=== PATIENT | female | born 1990 | race African-American/Black ===

== ENCOUNTER 2016-11-08 07:54 | Emergency (ER) | payer OTHER, SELFPAY ==
[~2016-11-08] VITALS: Ht 165.1 cm; Wt 68.0 kg
[~2016-11-08 07:54] MED LIST: ADULT GLYCERIN1 EACH RECTAL; MIRALAX17 G2 ORAL
[2016-11-08] MEDS ORDERED: Dicyclomine HCl 10mg/5ml oral soln ORAL ONE (08:45)
[2016-11-08] MEDS ORDERED: Mylanta II UD 30ml ORAL ONE (08:45)
[2016-11-08 08:59] LABS: APPEARANCE,URINE SLIGHTLY CLOUDY; KETONES,URINE 1+ (NEGATIVE); LEUKOCYTE ESTERASE ,URINE 1+ (NEGATIVE); NITRITE,URINE NEGATIVE (NEGATIVE); PH,URINE 6 (4.5-8.0); PROTEIN,URINE 1+ (NEGATIVE); UROBILINOGEN,URINE NORMAL MG/DL (0.0-1.0)
[2016-11-08 09:00] LABS: BASOPHILS % (AUTO) 0.8 % (0.0-2.0); EOSINOPHILS % (AUTO) 1.6 % (0.0-3.0); LYMPHOCYTES % (AUTO) 27.8 % (20.0-45.0); MEAN CORPUSCULAR HEMOGLOBIN 28.5 PG (27.0-31.0); MEAN CORPUSCULAR HGB CONC 32.6 G/DL (32.0-36.0); MEAN CORPUSCULAR VOLUME 87 FL (80-99); MEAN PLATELET VOLUME 9.1 FL (6.5-10.1); MONOCYTES % (AUTO) 7.6 % (1.0-10.0); NEUTROPHILS % (AUTO) 62.2 % (45.0-75.0); PLATELET COUNT 269 K/UL (150-450); RED BLOOD COUNT 4.49 M/UL (4.20-5.40); RED CELL DISTRIBUTION WIDTH 11.8 % (11.6-14.8)
[2016-11-08 09:07] LABS: BACTERIA,URINE MODERATE /HPF; MUCUS,URINE FEW /LPF (NONE/OCC); SQUAMOUS EPITHELIAL CELL,UR MODERATE /LPF (NONE/OCC)
[2016-11-08 09:10] VITALS: BP 121/77
[2016-11-08 09:29] LABS: ALANINE AMINOTRANSFERASE 7 U/L (3-33); ALBUMIN/GLOBULIN RATIO 1.3 (1.0-2.7); ANION GAP 11 (5-15); ASPARTATE AMINO TRANSFERASE 11 U/L (5-40); CALCIUM 9.3 mg/dL (8.6-10.2); CARBON DIOXIDE 24 mEQ/L (20-30); CHLORIDE 107 mEQ/L (98-107); CREATININE 0.8 mg/dL (0.5-0.9); GLOMERULAR FILTRATION RATE > 60 mL/min (>60); HEMOLYSIS 0; LIPASE 39 U/L (< 60); POTASSIUM 3.9 mEQ/L (3.4-4.9); SODIUM 142 mEQ/L (135-145); TOTAL PROTEIN 6.9 g/dL (6.6-8.7)
[2016-11-08] MEDS ORDERED: PEPCID AC20 M2 PO (09:51)
[2016-11-08 09:56] VITALS: BP 96/50
[2016-11-08 09:57] VITALS: BP 96/50
--- NOTE | 2016-11-09 07:19 | Emergency Room Report ---
History of Present Illness General Chief Complaint: Abdominal Pain Source: Patient Present Illness HPI Patient presents with complaints of mid epigastric abdominal pain Reports that off-and-on for the past one and a half months she has had the discomfort Has a mild burning sensation with a denies any radiation to the lower abdomen denies any back pain Denies any chest pain or shortness of breath Denies any change in diet or medications patient is otherwise fairly healthy Denies any fall or trauma Pain is intermittent and rated as 3/10 sharp epigastric Allergies: Coded Allergies: No Known Allergies (Unverified , 09/26/13) Patient History Past Medical History: see triage record Pertinent Family History: none Reviewed Nursing Documentation: PMH: Agreed, PSxH: Agreed Nursing Documentation-PMH Past Medical History: No Stated History Review of Systems All Other Systems: negative except mentioned in HPI Physical Exam Vital Signs Date Time Temp Pulse Resp B/P Pulse Ox O2 Delivery O2 Flow Rate FiO2 11/08/16 08:09 98.1 77 20 111/65 98 Room Air Sp02 EP Interpretation: reviewed, normal General Appearance: well appearing, no apparent distress Head: normocephalic, atraumatic Eyes: bilateral eye EOMI, bilateral eye PERRL ENT: hearing grossly normal, normal pharynx, TMs + canals normal, uvula midline Neck: full range of motion, supple, no meningismus, no bony tend Respiratory: lungs clear, normal breath sounds, no rhonchi, no respiratory distress, no retraction, no accessory muscle use Cardiovascular #1: normal peripheral pulses, regular rate, rhythm, no edema, no gallop, no JVD, no murmur Gastrointestinal: normal bowel sounds, non tender - On palpation however subjectively points to epigastric area for the discomfort, soft, no mass, no organomegaly, non-distended, no guarding, no hernia, no pulsatile mass, no rebound Genitourinary: no CVA tenderness Musculoskeletal: normal inspection Neurologic: oriented x3, responsive, agent ticketing gate III-XII nml as tested, motor strength/ tone normal, sensory intact Psychiatric: mood/affect normal Skin: normal color, no rash, warm/dry, palpation normal Lymphatic: normal inspection, no adenopathy Medical Decision Making Diagnostic Impression: Primary Impression: abdominal pain ER Course With the patient's history and examination, multiple differentials considered, including but not limited to , ectopic , ovarian torsion, gastritis, cholecystitis, pancreatitis, appendicitis Patient had baseline initial blood work initiated all within normal limits Patient's test is negative as well consideration as high regarding epigastric component patient was discussed regarding diet control lactose limitation, and the need for followup closely with outpatient physician Labs Test 11/08/16 08:35 11/08/16 09:00 White Blood Count 9.0 K/UL (4.8-10.8) Red Blood Count 4.49 M/UL (4.20-5.40) Hemoglobin 12.8 G/DL (12.0-16.0) Hematocrit 39.2 % (37.0-47.0) Mean Corpuscular Volume 87 FL (80-99) Mean Corpuscular Hemoglobin 28.5 PG (27.0-31.0) Mean Corpuscular Hemoglobin Concent 32.6 G/DL (32.0-36.0) Red Cell Distribution Width 11.8 % (11.6-14.8) Platelet Count 269 K/UL (150-450) Mean Platelet Volume 9.1 FL (6.5-10.1) Neutrophils (%) (Auto) 62.2 % (45.0-75.0) Lymphocytes (%) (Auto) 27.8 % (20.0-45.0) Monocytes (%) (Auto) 7.6 % (1.0-10.0) Eosinophils (%) (Auto) 1.6 % (0.0-3.0) Basophils (%) (Auto) 0.8 % (0.0-2.0) Urine Color Yellow Urine Appearance Slightly cloudy Urine pH 6 (4.5-8.0) Urine Specific [place] 1.020 (1.005-1.035) Urine Protein 1+ (NEGATIVE) Urine Glucose (UA) Negative (NEGATIVE) Urine Ketones 1+ (NEGATIVE) Urine Occult Blood 5+ (NEGATIVE) Urine Nitrite Negative (NEGATIVE) Urine Bilirubin Negative (NEGATIVE) Urine Urobilinogen Normal MG/DL (0.0-1.0) Urine Leukocyte Esterase 1+ (NEGATIVE) Urine RBC 10-15 /HPF (0 - 2) Urine WBC 2-4 /HPF (0 - 2) Urine Squamous Epithelial Cells Moderate /LPF (NONE/OCC) Urine Bacteria Moderate /HPF (NONE) Urine Mucus Few /LPF (NONE/OCC) Urine HCG, Qualitative Negative Sodium Level 142 mEQ/L (135-145) Potassium Level 3.9 mEQ/L (3.4-4.9) Chloride Level 107 mEQ/L (98-107) Carbon Dioxide Level 24 mEQ/L (20-30) Anion Gap 11 (5-15) Blood Urea Nitrogen 8 mg/dL (7-23) Creatinine 0.8 mg/dL (0.5-0.9) Estimat Glomerular Filtration Rate > 60 mL/min (>60) Glucose Level 90 mg/dL (74-106) Calcium Level 9.3 mg/dL (8.6-10.2) Total Bilirubin 0.2 mg/dL (0.0-1.2) Aspartate Amino Transf (AST/SGOT) 11 U/L (5-40) Alanine Aminotransferase (ALT/SGPT) 7 U/L (3-33) Alkaline Phosphatase 61 U/L (35-104) Total Protein 6.9 g/dL (6.6-8.7) Albumin 3.9 g/dL (3.5-5.2) Globulin 3.0 g/dL Albumin/Globulin Ratio 1.3 (1.0-2.7) Lipase 39 U/L (< 60) Last Vital Signs Date Time Temp Pulse Resp B/P Pulse Ox O2 Delivery O2 Flow Rate FiO2 11/08/16 09:57 98.1 65 23 96/50 100 Room Air Status: improved Disposition: HOME, SELF-CARE Condition: Improved Scripts Famotidine (PEPCID AC) 20 Mg Tablet 20 MG PO DAILY for 12 Days, TAB Prov: RIYA BLACK D.O. 11/08/16 Departure Forms: Return to Work Return to Work in (Days): 1 Return to Work Date: Nov 09, 2016 Patient Instructions: Abdominal Pain, Adult Additional Instructions: Patient is provided with the discharge instructions notified to follow up with primary doctor in the next 2-3 days otherwise return to the er with any worsening symptoms. Please note that this report is being documented using [employer] technology. This can lead to erroneous entry secondary to incorrect interpretation by the dictating instrument. RIYA BLACK D.O. Nov 09, 2016 07:19
== END 2016-11-08 09:57 | disposition home or self-care (01) ==
LOC: EMR 08:30
DX: R10.13 Epigastric pain (principal)
CPT/HCPCS: 36415; 80053; 81003; 81025; 83690; 85025; 87086; 99284

== ENCOUNTER 2017-01-02 18:52 | Emergency (ER) | payer OTHER ==
[~2017-01-02] VITALS: Ht 165.1 cm; Wt 90.3 kg
[~2017-01-02 18:52] MED LIST changes: +PEPCID AC20 M2 PO
[2017-01-02 19:12] VITALS: BP 126/82
[2017-01-02] MEDS ORDERED: PREDNISONE20 MG ORAL (19:16)
[2017-01-02] MEDS ORDERED: BENADRYL25 MG ORAL (19:16)
--- NOTE | 2017-01-02 19:19 | Emergency Room Report ---
History of Present Illness General Chief Complaint: Allergic Reaction Source: Patient Present Illness HPI Patient is a 26-year-old female presented after increased facial swelling intermittently for the past few days. Patient denied any recent fever. She denied any shortness of breath. She reported having itchiness to the right eye as well as intermittently for lip. Patient noticed increased discomfort to her upper lip for the past one day. She not been having fever. She reports having some sick contacts. Patient is unsure she's . Allergies: Coded Allergies: No Known Allergies (Unverified , 09/26/13) Patient History Last Menstrual Period: 12/16/16 Now: No : 0 Para: 0 Reviewed Nursing Documentation: PMH: Agreed, PSxH: Agreed Nursing Documentation-PMH Past Medical History: No Stated History Review of Systems All Other Systems: negative except mentioned in HPI Physical Exam Vital Signs Date Time Temp Pulse Resp B/P (MAP) Pulse Ox O2 Delivery O2 Flow Rate FiO2 01/02/17 19:02 97.9 84 16 126/82 100 Room Air General Appearance: well appearing, no apparent distress, alert, GCS 15, non- toxic Head: normocephalic, atraumatic ENT: hearing grossly normal, normal voice, other - minimal swelling to right side of upper lip Neck: full range of motion, supple Respiratory: no respiratory distress, speaking full sentences Cardiovascular #1: normal peripheral pulses, regular rate, rhythm Gastrointestinal: normal inspection, non tender, soft Musculoskeletal: no calf tenderness Neurologic: normal gait Psychiatric: mood/affect normal Skin: no rash Medical Decision Making Diagnostic Impression: Primary Impression: Allergic reaction ER Course Patient presented for skin rash. Differential diagnosis included was not limited to Villanueva-Evens syndrome, urticaria, erythema multiforme, contact dermatitis. Patient's benign exam and does not appear to require any further imaging or laboratory testing at this time. A urine test was ordered. The patient given prescription for Benadryl and prednisone. The patient is advised not to drive while taking Benadryl. She is advised to return if she began having increased difficulty breathing or other concerns Last Vital Signs Date Time Temp Pulse Resp B/P (MAP) Pulse Ox O2 Delivery O2 Flow Rate FiO2 01/02/17 19:02 97.9 84 16 126/82 100 Room Air Status: improved Disposition: HOME, SELF-CARE Condition: Stable Scripts Prednisone* (PREDNISONE*) 20 Mg Tablet 40 MG ORAL DAILY, #10 TAB Prov: Manuel Vale 01/02/17 Diphenhydramine Hcl* (BENADRYL*) 25 Mg Capsule 25 MG ORAL Q6H Y for Itching, #30 CAP Prov: Manuel Vale 01/02/17 Patient Instructions: Allergies Manuel Vale Jan 02, 2017 19:19
[2017-01-02 19:39] VITALS: BP 107/69
== END 2017-01-02 19:41 | disposition home or self-care (01) ==
LOC: EMR 19:39
DX: T78.40XA Allergy, unspecified, initial encounter (principal); X58.XXXA Exposure to other specified factors, initial encounter; H57.8 Other specified disorders of eye and adnexa
CPT/HCPCS: 81025; 99284

== ENCOUNTER 2017-11-14 13:32 | Emergency (ER) | payer OTHER ==
[~2017-11-14] VITALS: Ht 165.1 cm; Wt 93.0 kg
[~2017-11-14 13:32] MED LIST changes: +BENADRYL25 MG ORAL; +PREDNISONE20 MG ORAL
[2017-11-14 15:06] LABS: BILIRUBIN, URINE NEGATIVE (NEGATIVE); COLOR,URINE PALE YELLOW; GLUCOSE, URINE (UA) NEGATIVE (NEGATIVE); KETONES,URINE NEGATIVE (NEGATIVE); LEUKOCYTE ESTERASE ,URINE NEGATIVE (NEGATIVE); NITRITE,URINE NEGATIVE (NEGATIVE); PH,URINE 7 (4.5-8.0); PROTEIN,URINE NEGATIVE (NEGATIVE); UROBILINOGEN,URINE NORMAL MG/DL (0.0-1.0)
[2017-11-14 15:07] LABS: APPEARANCE,URINE SLIGHTLY CLOUDY
[2017-11-14 16:14] VITALS: BP 106/63
[2017-11-14] MEDS ORDERED: Acetaminophen 500mg (ES) tab ORAL ONE ×2 (16:21→16:30)
--- NOTE | 2017-11-14 16:34 | Diagnostic Imaging Report ---
Indication: Flank pain Technique: Noncontrast CT of the abdomen and pelvis utilizing automated exposure control. Axial, sagittal and coronal reformats presented. CT dose: Total DLP 978.29 mGycm; CTDI vol 17.93 mGy Comparison: None Findings: Please note that evaluation of the abdominal and pelvic viscera and vascular structures is limited without the use of intravenous and oral contrast. Within these limitations the following observations are made: Imaged lung bases are without focal airspace consolidation, pleural effusion or pneumothorax. Heart size within normal limits. No pericardial effusion. Imaged breast tissues grossly symmetric. Noncontrast evaluation of the liver, gallbladder, spleen, adrenal glands and pancreas is grossly unremarkable. Kidneys appear symmetric in size. There is no perinephric stranding. No hydronephrosis or urinary tract stones. Bladder is decompressed, limiting its evaluation. Uterus and adnexa are grossly unremarkable for CT and patient's age. There is no free intraperitoneal air or fluid. No evidence of small bowel obstruction. Appendix is normal. No definite focal or diffuse abnormal bowel wall thickening is appreciated however evaluation is limited without oral contrast. There is moderate colonic stool burden. A few prominent lymph nodes are noted in the mesentery, none of which are pathologically enlarged by imaging size criteria. These are nonspecific and may be reactive in etiology. Abdominal aorta is normal in caliber. No acute osseous abnormality identified. IMPRESSION: Limited exam without intravenous and oral contrast. Within these limitations: * No urinary tract stone or hydronephrosis as questioned clinically. * Bladder decompressed and not well evaluated. Consider urinalysis. * Normal appendix. * No evidence of bowel obstruction or definite inflammatory stranding in the mesentery. The CT scanner at [facility] is accredited by the [employer] and the scans are performed using protocols designed to limit radiation exposure to as low as reasonably achievable to attain images of sufficient resolution adequate for diagnostic evaluation.
[2017-11-14] MEDS ORDERED: TYLENOL EXTRA500 MG ORAL (16:54)
[2017-11-14] MEDS ORDERED: ROBAXIN-750750 MG PO (16:54)
[2017-11-14] MEDS ORDERED: COLACE100 MG ORAL (16:54)
[2017-11-14 17:21] VITALS: BP 106/63
--- NOTE | 2017-11-18 14:03 | Emergency Room Report ---
History of Present Illness General Chief Complaint: Back Pain-No Injury Source: Patient Present Illness HPI 27-year-old female presents ED for evaluation. Complaining of lower back pain for the last month. On and off. Dull, 5 out of 10, nonradiating. Notes increased urination. Denies any dysuria or hematuria. Denies fevers or chills. Denies nausea or vomiting. Denies any trauma. No other aggravating relieving factors. Denies any other associated symptoms Allergies: Coded Allergies: No Known Allergies (Unverified , 09/26/13) Patient History Past Medical History: none Past Surgical History: none Pertinent Family History: none Social History: Denies: smoking, alcohol use, drug use Last Menstrual Period: 09/22/2017 Now: No Immunizations: UTD Reviewed Nursing Documentation: PMH: Agreed; PSxH: Agreed Nursing Documentation-PMH Past Medical History: No Stated History Review of Systems All Other Systems: negative except mentioned in HPI Physical Exam Vital Signs Date Time Temp Pulse Resp B/P (MAP) Pulse Ox O2 Delivery O2 Flow Rate FiO2 11/14/17 14:24 98.8 79 14 106/63 97 Room Air 98.8 Sp02 EP Interpretation: reviewed, normal General Appearance: no apparent distress, alert, GCS 15, non-toxic Head: normocephalic, atraumatic Eyes: bilateral eye normal inspection, bilateral eye PERRL ENT: hearing grossly normal, normal pharynx, no angioedema, normal voice Neck: full range of motion, supple/symm/no masses Respiratory: chest non-tender, lungs clear, normal breath sounds, speaking full sentences Cardiovascular #1: regular rate, rhythm, no edema Cardiovascular #2: 2+ carotid (R), 2+ carotid (L), 2+ radial (R), 2+ radial (L) , 2+ dorsalis pedis (R), 2+ dorsalis pedis (L) Gastrointestinal: normal bowel sounds, non tender, soft, non-distended, no guarding, no rebound Rectal: deferred Genitourinary: normal inspection, no CVA tenderness Musculoskeletal: gait/station normal, normal range of motion, tender - paraspinal lumbar tenderness Neurologic: alert, oriented x3, responsive, motor strength/tone normal, sensory intact, speech normal Psychiatric: judgement/insight normal, memory normal, mood/affect normal, no suicidal/homicidal ideation Reflexes: 3+ bicep (R), 3+ bicep (L), 3+ tricep (R), 3+ tricep (L), 3+ knee (R) , 3+ knee (L) Skin: normal color, no rash, warm/dry, well hydrated Lymphatic: no adenopathy Medical Decision Making Diagnostic Impression: Primary Impression: Back pain Qualified Codes: M54.5 - Low back pain ER Course Hospital Course 27-year-old female presents with lower back pain, increased urination 1 month Differential diagnoses include: UTI, cystitis, pyelonephritis Clinical course Patient placed on stretcher. After initial history and physical I ordered UA, urine . UA few bacteria, some blood. Patient states there is no history of kidney stones but is not on her period Concern for kidney stones. I ordered a CT noncontrast which show no evidence of kidney stones I discussed findings with the patient. I believe her pain is muscular. There is no CVA tenderness. patient can be safely discharged to home Diagnosis - back pain Stable and discharged home with prescriptions for Rx Tylenol, RObaxin, colace. Instructed to followup with PMD. Return to ED if symptoms recur or worsen Labs Test 11/14/17 14:35 Urine Color Pale yellow Urine Appearance Slightly cloudy Urine pH 7 (4.5-8.0) Urine Specific [place] 1.010 (1.005-1.035) Urine Protein Negative (NEGATIVE) Urine Glucose (UA) Negative (NEGATIVE) Urine Ketones Negative (NEGATIVE) Urine Blood 3+ (NEGATIVE) Urine Nitrite Negative (NEGATIVE) Urine Bilirubin Negative (NEGATIVE) Urine Urobilinogen Normal MG/DL (0.0-1.0) Urine Leukocyte Esterase Negative (NEGATIVE) Urine RBC 10-15 /HPF (0 - 2) Urine WBC 0-2 /HPF (0 - 2) Urine Squamous Epithelial Cells Moderate /LPF (NONE/OCC) Urine Bacteria Few /HPF (NONE) Urine HCG, Qualitative Negative (NEGATIVE) CT/MRI/US Diagnostic Results CT/MRI/US Diagnostic Results : Imaging Test Ordered: CT A/P Impression no evidence of kidney stones, no acute process Last Vital Signs Date Time Temp Pulse Resp B/P (MAP) Pulse Ox O2 Delivery O2 Flow Rate FiO2 11/14/17 17:21 98.8 14 106/63 97 Room Air 209.8 11/14/17 14:24 79 Status: improved Disposition: HOME, SELF-CARE Condition: Stable Scripts Docusate Sodium* (COLACE*) 100 Mg Capsule 100 MG ORAL THREE TIMES A DAY for 10 Days, CAP Prov: Bradley Buenrostro MD 11/14/17 Methocarbamol* (ROBAXIN-750*) 750 Mg Tablet 750 MG PO TID, #21 TAB 0 Refills Prov: Bradley Buenrostro MD 11/14/17 Acetaminophen* (TYLENOL EXTRA STRENGTH*) 500 Mg Tablet 500 MG ORAL Q8H PRN for Prn Headache/Temp > 101, #30 TAB 0 Refills Prov: Bradley Buenrostro MD 11/14/17 Referrals: NON PHYSICIAN (PCP) Patient Instructions: Back Pain, Adult Additional Instructions: you will be called if urine culture grows bacteria. Bradley Buenrostro MD Nov 18, 2017 14:03
== END 2017-11-14 17:21 | disposition home or self-care (01) ==
LOC: EMR 14:41
DX: M54.5 Low back pain (principal)
CPT/HCPCS: 74176; 81003; 81025; 99285